=== PATIENT | female | born 1950 | race Two or more races ===

== ENCOUNTER 2021-08-27 12:22 | Outpatient (CLI) | payer OTHER | END 2021-08-27 12:23 | disposition home or self-care (01) | LOC: NUCLEAR 12:22 | PROVIDERS: ATTEND Internal Medicine Sports Medicine | DX: C73 Malignant neoplasm of thyroid gland (principal) | CPT/HCPCS: 78014; A9508 ==

== ENCOUNTER → 2021-08-31 12:29 | Outpatient (CLI) | payer OTHER | END | disposition home or self-care (01) | LOC: NUCLEAR 12:29 | PROVIDERS: ATTEND Internal Medicine Sports Medicine | DX: C73 Malignant neoplasm of thyroid gland (principal) | CPT/HCPCS: 78014; A9508 ==

== ENCOUNTER 2022-09-24 12:30 | Outpatient (CLI) | payer OTHER | END 2022-09-24 12:31 | disposition home or self-care (01) | LOC: NUCLEAR 12:30 | PROVIDERS: ATTEND Internal Medicine Sports Medicine | DX: C73 Malignant neoplasm of thyroid gland (principal); E89.0 Postprocedural hypothyroidism | CPT/HCPCS: 78015; A9528 ==